=== PATIENT | female | born 1960 | race Caucasian/White ===

== ENCOUNTER 2024-11-22 11:07 | Day surgery (SDC) | payer BC ==
[2024-11-21 11:28] VITALS: BMI 21.7
[2024-11-22] MEDS ORDERED: Lidocaine 1% (PF) 30 ML VIAL ONE (12:58)
[2024-11-22] MEDS ORDERED: Bupivacaine PF 0.5% 30 ML VIAL ONE (12:58)
[2024-11-22] MEDS ORDERED: CEFAZOLIN 2 GM VIAL ONE (13:04)
[2024-11-22] MEDS ORDERED: Famotidine/PF 20 mg/2ml Vial ONE (13:06)
[2024-11-22] MEDS ORDERED: Lidocaine 2% PF 5 ML VIAL ONE (13:11)
[2024-11-22] MEDS ORDERED: PROPOFOL 20 ML ONE (13:11)
[2024-11-22] MEDS ORDERED: Fentanyl 100 MCG/2 ML VIAL ONE (13:11)
[2024-11-22] MEDS ORDERED: Ketorolac Tromethamine 30 MG (1 mL) VIAL ONE (13:30)
[2024-11-22] MEDS ORDERED: Ondansetron PF 4 MG/2 ML Vial ONE (13:30)
[2024-11-22] MEDS ORDERED: Dexamethasone 4 mg/ml Vial ONE (13:30)
[2024-11-22] MEDS ORDERED: PHENYLEPHRINE-NS 100 MCG/ML 10 ML SYRINGE ONE (13:48)
== END 2024-11-22 13:55 | disposition home or self-care (01) ==
LOC: CSHSDC 11:07
PROVIDERS: ATTEND Podiatrist Foot & Ankle Surgery
PROC: 0QBQ0ZZ Excision of Right Toe Phalanx, Open Approach (ICD-10-PCS; principal; 2024-11-22)
DX: M25.774 Osteophyte, right foot (principal); L97.411 Non-pressure chronic ulcer of right heel and midfoot limited to breakdown of skin; E03.9 Hypothyroidism, unspecified; F32.A Depression, unspecified; J32.9 Chronic sinusitis, unspecified; Z90.49 Acquired absence of other specified parts of digestive tract; Z79.890 Hormone replacement therapy; Z79.2 Long term (current) use of antibiotics; Z79.899 Other long term (current) drug therapy
CPT/HCPCS: J0665; J1100; J1885; J2405; J2704; J3010; J3490